=== PATIENT | female | born 1980 | race American Indian/Alaskan Native ===

== ENCOUNTER 2016-10-01 23:05 | Emergency (ER) | payer SELFPAY ==
[2016-10-02 00:51] LABS: Eosinophils % (Auto) 3.4 % (0.0-4.3); Hematocrit 38.6 % (30.3-42.9); Hemoglobin 12.6 gm/dl (10.1-14.3); Mean Corpuscular HGB Conc 33 % (30-34); Mean Corpuscular Hemoglobin 30 pg (28-32); Mean Corpuscular Volume 92 fl (79-97); Platelet Count 287 K/mm3 (140-440); Red Blood Count 4.18 M/mm3 (3.65-5.03); Red Cell Distribution Width 13.8 % (13.2-15.2); White Blood Count 5.1 K/mm3 (4.5-11.0)
[2016-10-02 01:01] LABS: Alanine Aminotransferase 25 units/L (7-56); Albumin 3.6 g/dL (3.9-5); Alkaline Phosphatase 73 units/L (35-129); Anion Gap 16 mmol/L; Bilirubin,Total 0.3 mg/dL (0.1-1.2); Blood Urea Nitrogen 11 mg/dL (7-17); Calcium 8.3 mg/dL (8.4-10.2); Carbon Dioxide 25 mmol/L (22-30); Chloride 104.7 mmol/L (98-107); Glucose 90 mg/dL (65-100); Lipase 33 units/L (13-60); Potassium 3.7 mmol/L (3.6-5.0); Sodium 142 mmol/L (137-145); Total Protein 7.1 g/dL (6.3-8.2)
[2016-10-02 02:15] LABS: Bilirubin,Urine NEG (Negative); Blood,Urine NEG (Negative); Ketones,Urine NEG (Negative); Leukocyte Esterase,Urine SM (Negative); Mucus,Urine FEW /HPF; Nitrite,Urine NEG (Negative); Protein,Urine <15 mg/dL mg/dL (Negative); Urobilinogen,Urine < 2.0 mg/dL (<2.0)
[2016-10-02] MEDS ORDERED: LIDOCAINE VISCOUS 2% ONE (06:56)
[2016-10-02] MEDS ORDERED: AFRIN ONE (06:57)
[2016-10-02 07:26] VITALS: BP 141/94
--- NOTE | 2016-10-02 07:45 | Emergency Department Report ---
ED Abdominal Pain HPI - General Chief Complaint: Abdominal Pain Stated Complaint: ABD PAIN Time Seen by Provider: 10/02/16 07:42 Source: patient Mode of arrival: Ambulatory Limitations: No Limitations - History of Present Illness Initial Comments: The patient complained of epigastric pain which did not migrate and was present intermittently and unrelated to eating times one day. Is largely resolved now. She does not complain of any lower abdominal pain or vaginal discharge. She denies dysuria. She denies fever or chills. She would like a work excuse. MD Complaint: abdominal pain -: hour(s) Location: epigastric Radiation: none Migration to: no migration Severity: mild, moderate Quality: aching Consistency: intermittent, now resolved Improves With: nothing Worsens With: nothing Associated Symptoms: denies other symptoms - Related Data Previous Rx's Medication Instructions Recorded Last Taken Type Lansoprazole [Prevacid] 15 mg PO BID #14 cap 10/02/16 Unknown Rx traMADol [Ultram] 50 mg PO Q6HR PRN #10 tablet 10/02/16 Unknown Rx Allergies Allergy/AdvReac Type Severity Reaction Status Date / Time No Known Allergies Allergy Verified 10/01/16 23:32 ED Review of Systems ROS: Stated complaint: ABD PAIN Other details as noted in HPI Constitutional: denies: chills, fever Eyes: denies: eye pain, eye discharge, vision change ENT: denies: ear pain, throat pain Respiratory: denies: cough, shortness of breath, wheezing Cardiovascular: denies: chest pain, palpitations Endocrine: no symptoms reported Gastrointestinal: as per HPI, abdominal pain. denies: nausea, diarrhea Genitourinary: denies: urgency, dysuria, discharge Musculoskeletal: denies: back pain, joint swelling, arthralgia Skin: denies: rash, lesions Neurological: denies: headache, weakness, paresthesias Psychiatric: denies: anxiety, depression Hematological/Lymphatic: denies: easy bleeding, easy bruising ED Past Medical Hx - Past Medical History Previous Medical History?: Yes Hx HIV: Yes - Surgical History Past Surgical History?: No - Social History Smoking Status: Current Every Day Smoker Substance Use Type: Alcohol, Cocaine - Medications Home Medications: Home Medications Medication Instructions Recorded Confirmed Last Taken Type Lansoprazole [Prevacid] 15 mg PO BID #14 cap 10/02/16 Unknown Rx traMADol [Ultram] 50 mg PO Q6HR PRN #10 tablet 10/02/16 Unknown Rx ED Physical Exam - General Limitations: No Limitations General appearance: alert, in no apparent distress - Head Head exam: Present: atraumatic, normocephalic - Eye Eye exam: Present: normal appearance, PERRL, EOMI. Absent: scleral icterus - ENT ENT exam: Present: mucous membranes moist - Neck Neck exam: Present: normal inspection - Respiratory Respiratory exam: Present: normal lung sounds bilaterally. Absent: respiratory distress - Cardiovascular Cardiovascular Exam: Present: regular rate, normal rhythm. Absent: systolic murmur, diastolic murmur, rubs, gallop - GI/Abdominal GI/Abdominal exam: Present: soft, normal bowel sounds. Absent: distended, tenderness, guarding, rebound, rigid, organomegaly, mass, bruit, pulsatile mass , hernia - Extremities Exam Extremities exam: Present: normal inspection - Back Exam Back exam: Present: normal inspection - Neurological Exam Neurological exam: Present: alert, oriented X3, CN II-XII intact. Absent: motor sensory deficit - Psychiatric Psychiatric exam: Present: normal affect, normal mood - Skin Skin exam: Present: warm, dry, intact, normal color. Absent: rash ED Course Vital Signs 10/01/16 10/02/16 10/02/16 23:33 06:00 06:50 Temperature 98.6 F 98.6 F 98.2 F Pulse Rate 78 73 70 Respiratory 18 12 20 Rate Blood Pressure 159/102 Blood Pressure 128/88 141/94 [Right] O2 Sat by Pulse 98 100 99 Oximetry - Reevaluation(s) Reevaluation #1: Will check an EKG prior to patient discharge. She is asymptomatic now. 10/02/16 08:03 ED Medical Decision Making - Lab Data Result diagrams: 10/02/16 00:26 10/02/16 00:26 Laboratory Results - last 24 hr 10/01/16 10/02/16 10/02/16 Unknown 00:26 00:26 WBC 5.1 RBC 4.18 Hgb 12.6 Hct 38.6 MCV 92 MCH 30 MCHC 33 RDW 13.8 Plt Count 287 Lymph % (Auto) 43.3 H [place] % (Auto) 10.4 H Eos % (Auto) 3.4 Baso % (Auto) 1.0 Lymph # 2.2 [place] # 0.5 Eos # 0.2 Baso # 0.0 Seg Neutrophils % 41.9 Seg Neutrophils # 2.2 Sodium 142 Potassium 3.7 Chloride 104.7 Carbon Dioxide 25 Anion Gap 16 BUN 11 Creatinine 0.5 L Estimated GFR > 60 BUN/Creatinine Ratio 22.00 Glucose 90 Calcium 8.3 L Total Bilirubin 0.3 AST 30 ALT 25 Alkaline Phosphatase 73 Total Protein 7.1 Albumin 3.6 L Albumin/Globulin Ratio 1.0 Lipase 33 HCG, Qual Urine Color Yellow Urine Turbidity Clear Urine pH 7.0 Ur Specific [place] 1.018 Urine Protein <15 mg/dl Urine Glucose (UA) Neg Urine Ketones Neg Urine Blood Neg Urine Nitrite Neg Urine Bilirubin Neg Urine Urobilinogen < 2.0 Ur Leukocyte Esterase Sm Urine WBC (Auto) 4.0 Urine RBC (Auto) 3.0 U Epithel Cells (Auto) 4.0 Urine Mucus Few 10/02/16 00:26 WBC RBC Hgb Hct MCV MCH MCHC RDW Plt Count Lymph % (Auto) [place] % (Auto) Eos % (Auto) Baso % (Auto) Lymph # [place] # Eos # Baso # Seg Neutrophils % Seg Neutrophils # Sodium Potassium Chloride Carbon Dioxide Anion Gap BUN Creatinine Estimated GFR BUN/Creatinine Ratio Glucose Calcium Total Bilirubin AST ALT Alkaline Phosphatase Total Protein Albumin Albumin/Globulin Ratio Lipase HCG, Qual Negative Urine Color Urine Turbidity Urine pH Ur Specific [place] Urine Protein Urine Glucose (UA) Urine Ketones Urine Blood Urine Nitrite Urine Bilirubin Urine Urobilinogen Ur Leukocyte Esterase Urine WBC (Auto) Urine RBC (Auto) U Epithel Cells (Auto) Urine Mucus - EKG Data -: EKG Interpreted by Me EKG shows normal: sinus rhythm, axis, intervals, QRS complexes, ST-T waves Rate: normal - EKG Data Interpretation: normal EKG Critical care attestation.: If time is entered above; I have spent that time in minutes in the direct care of this critically ill patient, excluding procedure time. ED Disposition Clinical Impression: Epigastric pain Disposition: DISCHARGED TO HOME OR SELFCARE Is pt being admited?: No Does the pt Need Aspirin: No Condition: Stable Instructions: Abdominal Pain (ED) Additional Instructions: Follow-up with your primary care provider. Obviously avoid any stomach irritants, alcohol or substance abuse. Return any acute change or problem. Prescriptions: Lansoprazole [Prevacid] 15 mg PO BID #14 cap traMADol [Ultram] 50 mg PO Q6HR PRN #10 tablet PRN Reason: Pain Referrals: PRIMARY CARE, [Primary Care Provider] - 3-5 Days Forms: Work/School Release Form(ED) Time of Disposition: 08:05
== END 2016-10-02 08:25 | disposition home or self-care (01) ==
LOC: ED 23:05
DX: R10.13 Epigastric pain (principal); F17.200 Nicotine dependence, unspecified, uncomplicated; F14.10 Cocaine abuse, uncomplicated
CPT/HCPCS: 36415; 80053; 81001; 83690; 84703; 85025; 93005; 93010; 99283

== ENCOUNTER 2018-11-12 05:12 | Observation (INO) | payer OTHER ==
[2018-11-12] MEDS ORDERED: NACL 0.9% 1000 ML 1,000 ML IV ONE ×2 (05:45→07:00)
[2018-11-12] MEDS ORDERED: DECADRON IV ONE (05:46)
[2018-11-12] MEDS ORDERED: TORADOL IV ONE (05:46)
[2018-11-12 06:09] LABS: Bilirubin,Urine NEG (Negative); Blood,Urine NEG (Negative); Color,Urine Yellow (Yellow); Hyaline Casts,Urine 1 /LPF; Mucus,Urine FEW /HPF; Urobilinogen,Urine < 2.0 mg/dL (<2.0)
[2018-11-12 06:17] LABS: HCG Qualitative,Urine Negative (Negative)
[2018-11-12 06:22] LABS: Hematocrit 26.3 % (30.3-42.9); Hemoglobin 9.2 gm/dl (10.1-14.3); Mean Corpuscular HGB Conc 35 % (30-34); Mean Corpuscular Volume 88 fl (79-97); Red Blood Count 2.99 M/mm3 (3.65-5.03); Red Cell Distribution Width 15.1 % (13.2-15.2)
[2018-11-12 06:24] LABS: Platelet Count 47 K/mm3 (140-440)
[2018-11-12] MEDS ORDERED: ROCEPHIN/NS 1 GM/50 ML 1 GM/50 ML BAG IV ONE (06:33)
[2018-11-12 06:35] LABS: Albumin 3.5 g/dL (3.9-5)
[2018-11-12 06:50] LABS: Calcium 12.7 mg/dL (8.4-10.2)
--- NOTE | 2018-11-12 06:53 | XRay Report ---
PROCEDURE: XR CHEST ROUTINE 2V TECHNIQUE: PA and lateral chest radiographs were obtained. HISTORY: cough COMPARISONS: None. FINDINGS: Heart: Normal. Mediastinum/Vessels: Normal. Lungs/Pleural space: There are no acute infiltrates or effusions.. Bony thorax: No acute osseous abnormality. IMPRESSION: No acute cardiopulmonary process.. This document is electronically signed by Asher Adams MD., November 12 2018 06:51:36 AM ET
--- NOTE | 2018-11-12 07:35 | Emergency Department Report ---
<KEVIN CONNORS - Last Filed: 11/12/18 07:31> ED General Adult HPI - General Chief complaint: Pain General Stated complaint: MUSCLE ACHES X'S 2 WEEKS Time Seen by Provider: 11/12/18 05:30 Source: patient Mode of arrival: Ambulatory Limitations: No Limitations - History of Present Illness Initial comments: The patient is a 37-year-old -[place] female with a history of HIV and on ARV medications, who presents to the ED with complaint of acute onset persistent severe diffuse nontraumatic bodyaches and pains for the last 2 weeks. Patient states that she was evaluated by her primary care physician 2 days ago and was told that nothing was wrong with her, and was advised to take [id number] pain medications. Patient states that she has been taking [id number] medications with no relief. Patient also states that she has not been able to sleep because of severe diffuse body aches and pains. Patient denies dizziness, fever, chills, nausea, vomiting, abdominal pain, diarrhea, chest pain, headache, dysuria, urinary frequency and urgency for cough and shortness of breath. MD Complaint: diffuse body aches and pains -: Sudden, week(s) (2) Location: back, upper extremity, lower extremity Radiation: non-radiation Severity scale (0 -10): 8 Quality: aching, sharp, constant Consistency: constant Improves with: none Worsens with: none Associated Symptoms: denies other symptoms. denies: confusion, chest pain, cough, diaphoresis, fever/chills, headaches, loss of appetite, malaise, nausea/vomiting, rash, shortness of breath, syncope, weakness Treatments Prior to Arrival: none - Related Data Previous Rx's Medication Instructions Recorded Last Taken Type Lansoprazole [Prevacid] 15 mg PO BID #14 cap 10/02/16 Unknown Rx traMADol [Ultram] 50 mg PO Q6HR PRN #10 tablet 10/02/16 Unknown Rx Allergies Allergy/AdvReac Type Severity Reaction Status Date / Time No Known Allergies Allergy Verified 10/01/16 23:32 ED Review of Systems Comment: All other systems reviewed and negative Constitutional: denies: chills, fever, malaise, weakness Eyes: denies: eye pain, eye discharge, vision change ENT: denies: ear pain, throat pain, dental pain, hearing loss, congestion Respiratory: see HPI. denies: cough, shortness of breath, SOB with exertion, SOB at rest, wheezing Cardiovascular: denies: chest pain, palpitations, dyspnea on exertion, syncope, paroxysmal nocturnal dyspnea Endocrine: no symptoms reported. denies: excessive sweating, increased hunger, increased urine, unexplained weight gain Gastrointestinal: denies: abdominal pain, nausea, diarrhea Genitourinary: denies: urgency, dysuria, discharge Musculoskeletal: back pain, arthralgia, myalgia. denies: joint swelling Skin: denies: rash, lesions Neurological: denies: headache, weakness, paresthesias Psychiatric: denies: anxiety, depression Hematological/Lymphatic: denies: easy bleeding, easy bruising ED Past Medical Hx - Past Medical History Previous Medical History?: Yes Hx HIV: Yes - Surgical History Past Surgical History?: No - Social History Smoking Status: Current Every Day Smoker Substance Use Type: None - Medications Home Medications: Home Medications Medication Instructions Recorded Confirmed Last Taken Type Lansoprazole [Prevacid] 15 mg PO BID #14 cap 10/02/16 Unknown Rx traMADol [Ultram] 50 mg PO Q6HR PRN #10 tablet 10/02/16 Unknown Rx ED Physical Exam - General Limitations: No Limitations General appearance: alert, in no apparent distress - Head Head exam: Present: atraumatic, normocephalic, normal inspection - Eye Eye exam: Present: normal appearance, PERRL, EOMI Pupils: Present: normal accommodation - ENT ENT exam: Present: normal exam, normal orophraynx, mucous membranes moist, TM's normal bilaterally, normal external ear exam - Neck Neck exam: Present: normal inspection, full ROM - Respiratory Respiratory exam: Present: normal lung sounds bilaterally. Absent: respiratory distress, wheezes, rales, rhonchi, chest wall tenderness, accessory muscle use, prolonged expiratory - Cardiovascular Cardiovascular Exam: Present: regular rate, normal rhythm. Absent: systolic murmur, diastolic murmur, rubs, gallop - GI/Abdominal GI/Abdominal exam: Present: soft, normal bowel sounds. Absent: tenderness, hyperactive bowel sounds, hypoactive bowel sounds - Rectal Rectal exam: Present: deferred - Extremities Exam Extremities exam: Present: normal inspection, full ROM, normal capillary refill - Back Exam Back exam: Present: normal inspection, full ROM. Absent: CVA tenderness (L), muscle spasm, paraspinal tenderness, vertebral tenderness - Neurological Exam Neurological exam: Present: alert, oriented X3, CN II-XII intact, normal gait, reflexes normal - Psychiatric Psychiatric exam: Present: normal affect, normal mood - Skin Skin exam: Present: warm, dry, intact, normal color. Absent: rash ED Course - Reevaluation(s) Reevaluation #1: 11/12/18 07:35 Patient is alert and oriented 3 and is not in any distress but in pain and normal vital signs. Labs are drawn and patient treated for pain. Chest x-ray shows no acute cardiopulmonary abnormalities. Lab tests results were reviewed and show acute hypercalcemia of 12.7, BUN and creatinine levels are 31 and 1.7 respectively and acute leukocytosis of 11,100. Urinalysis shows acute urinary tract infection. Patient was treated in the ED with normal saline 2 L IV bolus, pain medications and Rocephin 1 g IV 1. EKG, troponin levels and PTH level was also added to the tests. On reevaluation, patient's pain is well controlled, patient resting comfortably on the bed does not and watching TV. ED Medical Decision Making - Lab Data Result diagrams: 11/12/18 06:10 11/12/18 06:10 - Radiology Data Radiology results: report reviewed, image reviewed No acute cardiopulmonary abnormality - Medical Decision Making Patient is alert and oriented 3 and is not in any distress but in pain and normal vital signs. Labs are drawn and patient treated for pain. Chest x-ray shows no acute cardiopulmonary abnormalities. Lab tests results were reviewed and show acute hypercalcemia of 12.7, BUN and creatinine levels are 31 and 1.7 respectively and acute leukocytosis of 11,100. Urinalysis shows acute urinary tract infection. Patient was treated in the ED with normal saline 2 L IV bolus, pain medications and Rocephin 1 g IV 1. EKG, troponin levels and PTH level was also added to the tests. On reevaluation, patient's pain is well controlled, patient resting comfortably on the bed does not and watching TV. Patient care was transferred to Ms. Jarqiun Sammy ARELLANO at shift change. Ms Jarquin shall review her lab test results and make appropriate disposition. - Differential Diagnosis Flu like symptoms, Body aches, acute hypercalcemia, acute uti ED Disposition Clinical Impression: Hypercalcemia, Deficiency of PTH Disposition: OP ADMIT IP TO THIS HOSP Condition: Stable Referrals: GERTRUDE MALDONADO MD [Primary Care Provider] - 3-5 Days <HOLLISPENCERAditya Servin - Last Filed: 11/12/18 08:46> ED Review of Systems ROS: Stated complaint: MUSCLE ACHES X'S 2 WEEKS Other details as noted in HPI ED Course Vital Signs 11/12/18 05:18 Temperature 98.1 F Pulse Rate 96 H Respiratory 18 Rate Blood Pressure 118/62 O2 Sat by Pulse 97 Oximetry ED Medical Decision Making - Lab Data Result diagrams: 11/12/18 06:10 11/12/18 06:10 - Medical Decision Making Spoke to Dr. Cotton hospitalists regarding patient's status. He recommends patient to be admitted to [facility] with telemetry. Patient's PTH came back low at 14.16 but elevated hyper cussing of 12.7, elevated BUN of 31 mild bump in creatinine 1.6. Patient be evaluated as an admission. Critical care attestation.: If time is entered above; I have spent that time in minutes in the direct care of this critically ill patient, excluding procedure time. ED Disposition Is pt being admited?: Yes Does the pt Need Aspirin: No
[2018-11-12 08:28] LABS: Anisocytosis 1+; Band Neutrophils # (Manual) 0.9 K/mm3; Platelet Estimate Consistent w Auto; Total Cells Counted 100
[2018-11-12] MEDS ORDERED: NACL 0.9% 1000 ML 1,000 ML ONE (09:32)
[2018-11-12] MEDS ORDERED: ZOFRAN IV PRN (11:56)
[2018-11-12] MEDS ORDERED: SODIUM CHLORIDE FLUSH SYRINGE 10 ML IV PRN (11:56)
[2018-11-12] MEDS ORDERED: TYLENOL PO PRN (11:56)
--- NOTE | 2018-11-12 12:08 | History and Physical Report ---
History of Present Illness Date of examination: 11/12/18 Date of admission: 11/12/18 08:38 Chief complaint: Generalized body pain History of present illness: 37-year-old -[place] female with past medical history significant for HIV medication presented to the emergency department complaining of generalized body aches worse in the abdomen and in the legs or the last 1 week. Aching pain, at our of 10 intensity was no alleviating or aggravating factors iden tified. Patient went to her primary care physician 2 days ago and was given Tylenol with no improvement. Patient admitted that she has frequency and urgency but denied dysuria. Patient denied fever, chills, nausea, vomiting. Vision complains occasional dry cough and headache. REVIEW OF SYSTEMS: GENERAL: no weight change, no fatigue, no fever HEAD: + head ache EYES: no blurry vision, no acute visual loss EARS: no hearing loss, no discharge, no earache NOSE: no stuffiness, no sneezing, no discharge MOUTH, THROAT AND NECK: no bleeding gums, no sore throat, no swollen neck CARDIAC: no palpitations, no dyspnea on exertion, no orthopnea, no PND, no edema, no chest pain RESPIRATORY: no shortness of breath, no wheeze, no cough, no sputum, no hemoptysis, no asthma GI: no decreased appetite, no nausea, no vomiting, no dysphagia, no diarrhea, no constipation,+ abdominal pain URINARY: increased in frequency, + urgency MUSCULOSKELETAL: generalized aches NEUROLOGIC: no loss of sensation/numbness, no tingling, no tremors, no weakness/paralysis HEMATOLOGIC: no anemia, no easy bruising SKIN: no rashes ENDOCRINE: no heat/cold intolerance, no polyuria, no polydipsia, no thyroid p roblems, no diabetes PSYCHIATRIC: no anxiety, no depression, no suicidal ideations Past History Past Medical History: HIV/AIDS Past Surgical History: Other (wart removal around the vaginal area) Social history: smoking (2x aweek), alcohol abuse (drinks heavily on her off days 2x a week) Family history: no significant family history Medications and Allergies Allergies Allergy/AdvReac Type Severity Reaction Status Date / Time No Known Allergies Allergy Verified 10/01/16 23:32 Home Medications Medication Instructions Recorded Confirmed Last Taken Type traMADol [Ultram] 50 mg PO Q6HR PRN #10 tablet 0411/12/18 11/12/18 07:00 Rx Contrave ER 8-90 mg Tablet 8 - 90 mg PO BID 11/12/18 11/12/18 11/11/18 History TRUVADA 200-300 mg 200 mg PO DAILY 11/12/18 11/12/18 11/11/18 History Active Meds: Active Medications Acetaminophen (Tylenol) 650 mg PO Q4H PRN PRN Reason: Pain MILD(1-3)/Fever >100.5/ONEAL Famotidine (Pepcid) 20 mg PO BID JERRY Sodium Chloride (Nacl 0.9% 1000 Ml) 1,000 mls @ 125 mls/hr IV DIRECT JERRY Ceftriaxone Sodium (Rocephin/Ns 1 Gm/50 Ml) 1 gm in 50 mls @ 100 mls/hr IV Q24HR JERRY; Protocol Ondansetron HCl (Zofran) 4 mg IV Q8H PRN PRN Reason: Nausea And Vomiting Oxycodone/Acetaminophen (Percocet 5/325) 1 tab PO Q6H PRN PRN Reason: Pain, Moderate (4-6) Sodium Chloride (Sodium Chloride Flush Syringe 10 Ml) 10 ml IV BID JERRY Sodium Chloride (Sodium Chloride Flush Syringe 10 Ml) 10 ml IV PRN PRN PRN Reason: LINE FLUSH Exam - Physical Exam Narrative exam: Not in cardiopulmonary distress. The patient appeared well nourished and normally developed. Vital signs as documented. Head exam is unremarkable. No scleral icterus . Neck is without jugular venous distension, thyromegaly, or carotid bruits. Lungs are clear to auscultation. Cardiac exam reveals regular rate and Rhythm. First and second heart sounds normal. No murmurs, rubs or gallops. Abdominal exam reveals normal bowel sounds, no masses, no organomegaly and no aortic enlargement. Extremities are nonedematous and both femoral and pedal pulses are normal. EM PHYSICIAN: Alert and oriented 3. No focal weakness. - Constitutional Vitals: Temp Pulse Resp BP Pulse Ox 98.7 F 89 20 131/85 96 11/12/18 09:45 11/12/18 09:45 11/12/18 09:45 11/12/18 09:45 11/12/18 09:45 Results - Labs CBC & Chem 7: 11/12/18 06:10 11/12/18 06:10 Labs: Laboratory Last Values WBC 11.1 K/mm3 (4.5-11.0) H 11/12/18 06:10 RBC 2.99 M/mm3 (3.65-5.03) L 11/12/18 06:10 Hgb 9.2 gm/dl (10.1-14.3) L 11/12/18 06:10 Hct 26.3 % (30.3-42.9) L 11/12/18 06:10 MCV 88 fl (79-97) 11/12/18 06:10 MCH 31 pg (28-32) 11/12/18 06:10 MCHC 35 % (30-34) H 11/12/18 06:10 RDW 15.1 % (13.2-15.2) 11/12/18 06:10 Plt Count 47 K/mm3 (140-440) L 11/12/18 06:10 [place] % (Auto) Tape Editor 11/12/18 06:10 Add Manual Diff Complete 11/12/18 06:10 Total Counted 100 11/12/18 06:10 Seg Neuts % (Manual) 40.0 % (40.0-70.0) 11/12/18 06:10 8.0 % 11/12/18 06:10 31.0 % (13.4-35.0) 11/12/18 06:10 Reactive Lymphs % (Man) 4.0 % 11/12/18 06:10 9.0 % (0.0-7.3) H 11/12/18 06:10 1.0 % (0.0-4.3) 11/12/18 06:10 1.0 % (0.0-1.8) 11/12/18 06:10 6.0 % 11/12/18 06:10 0 % 11/12/18 06:10 0 % 11/12/18 06:10 0 % 11/12/18 06:10 Nucleated RBC % 4.0 % (0.0-0.9) H 11/12/18 06:10 Seg Neutrophils # Man 4.4 K/mm3 (1.8-7.7) 11/12/18 06:10 Band Neutrophils # 0.9 K/mm3 11/12/18 06:10 3.4 K/mm3 (1.2-5.4) 11/12/18 06:10 Abs React Lymphs (Man) 0.4 K/mm3 11/12/18 06:10 1.0 K/mm3 (0.0-0.8) H 11/12/18 06:10 0.1 K/mm3 (0.0-0.4) 11/12/18 06:10 0.1 K/mm3 (0.0-0.1) 11/12/18 06:10 0.7 K/mm3 11/12/18 06:10 0.0 K/mm3 11/12/18 06:10 0.0 K/mm3 11/12/18 06:10 Blast Cells # 0.0 K/mm3 11/12/18 06:10 WBC Morphology Not Reportable 11/12/18 06:10 Hypersegmented Neuts Not Reportable 11/12/18 06:10 Hyposegmented Neuts Not Reportable 11/12/18 06:10 Hypogranular Neuts Not Reportable 11/12/18 06:10 Not Reportable 11/12/18 06:10 Not Reportable 11/12/18 06:10 Not Reportable 11/12/18 06:10 Not Reportable 11/12/18 06:10 Not Reportable 11/12/18 06:10 Not Reportable 11/12/18 06:10 Consistent w auto 11/12/18 06:10 Not Reportable 11/12/18 06:10 Plt Clumps, EDTA Not Reportable 11/12/18 06:10 Not Reportable 11/12/18 06:10 Not Reportable 11/12/18 06:10 Not Reportable 11/12/18 06:10 Plt Morphology Comment Not Reportable 11/12/18 06:10 RBC Morphology Not Reportable 11/12/18 06:10 Dimorphic RBCs Not Reportable 11/12/18 06:10 Not Reportable 11/12/18 06:10 Not Reportable 11/12/18 06:10 Not Reportable 11/12/18 06:10 1+ 11/12/18 06:10 Few 11/12/18 06:10 Not Reportable 11/12/18 06:10 Not Reportable 11/12/18 06:10 Not Reportable 11/12/18 06:10 Not Reportable 11/12/18 06:10 Not Reportable 11/12/18 06:10 Not Reportable 11/12/18 06:10 Not Reportable 11/12/18 06:10 Not Reportable 11/12/18 06:10 Not Reportable 11/12/18 06:10 Not Reportable 11/12/18 06:10 Not Reportable 11/12/18 06:10 Not Reportable 11/12/18 06:10 Not Reportable 11/12/18 06:10 Not Reportable 11/12/18 06:10 Acanthocytes (Spur) Not Reportable 11/12/18 06:10 Rouleaux Not Reportable 11/12/18 06:10 Not Reportable 11/12/18 06:10 Not Reportable 11/12/18 06:10 Not Reportable 11/12/18 06:10 Not Reportable 11/12/18 06:10 Hem Pathologist Commnt No 11/12/18 06:10 Sodium 140 mmol/L (137-145) 11/12/18 06:10 Potassium 4.1 mmol/L (3.6-5.0) 11/12/18 06:10 Chloride 108.4 mmol/L (98-107) H 11/12/18 06:10 Carbon Dioxide 16 mmol/L (22-30) L 11/12/18 06:10 20 mmol/L 11/12/18 06:10 BUN 31 mg/dL (7-17) H 11/12/18 06:10 1.7 mg/dL (0.7-1.2) H 11/12/18 06:10 Estimated GFR 41 ml/min 11/12/18 06:10 18 % 11/12/18 06:10 Glucose 82 mg/dL (65-100) 11/12/18 06:10 Calcium 12.7 mg/dL (8.4-10.2) H* 11/12/18 06:10 Phosphorus 4.90 mg/dL (2.5-4.5) H 11/12/18 06:10 0.40 mg/dL (0.1-1.2) 11/12/18 06:10 AST 102 units/L (5-40) H 11/12/18 06:10 ALT 32 units/L (7-56) 11/12/18 06:10 82 units/L (35-129) 11/12/18 06:10 6.5 g/dL (6.3-8.2) 11/12/18 06:10 3.5 g/dL (3.9-5) L 11/12/18 06:10 1.2 % 11/12/18 06:10 PTH Intact 14.16 pg/mL (15-65) L 11/12/18 Unknown Yellow (Yellow) 11/12/18 05:49 Cloudy (Clear) 11/12/18 05:49 5.0 (5.0-7.0) 11/12/18 05:49 Ur Specific [place] 1.018 (1.003-1.030) 11/12/18 05:49 30 mg/dl mg/dL (Negative) 11/12/18 05:49 Neg mg/dL (Negative) 11/12/18 05:49 Neg mg/dL (Negative) 11/12/18 05:49 Neg (Negative) 11/12/18 05:49 Neg (Negative) 11/12/18 05:49 Neg (Negative) 11/12/18 05:49 < 2.0 mg/dL (<2.0) 11/12/18 05:49 Ur Leukocyte Esterase Tr (Negative) 11/12/18 05:49 23.0 /HPF (0.0-6.0) H 11/12/18 05:49 1.0 /HPF (0.0-6.0) 11/12/18 05:49 U Epithel Cells (Auto) 8.0 /HPF (0-13.0) 11/12/18 05:49 Hyaline Casts 1 /LPF 11/12/18 05:49 Few /HPF 11/12/18 05:49 Urine HCG, Qual Negative (Negative) 11/12/18 05:49 Assessment and Plan Assessment and plan: Generalized body pain - Causes unknown - Symptomatic management UTI - Urine cultures pending - is on IV ceftriaxone Hypercalcemia - Was minimally decreased parathyroid hormone - Hydrated with IV fluids - Monitor in the morning - If persisted, need workup with saddle cutter as an outpatient DEIDRA - Likely due to dehydration - Continue IV fluids HIV/AIDS - Continue her home medications Alcoholism, binge drinker - Counseled about cessation of alcohol DVT prophylaxis - On heparin Disposition - Admit to medical floor for observation Advance Directives: Yes VTE prophylaxis?: Chemical Plan of care discussed with patient/family: Yes
[2018-11-12] MEDS: SODIUM CHLORIDE FLUSH SYRINGE 10 ML IV SCH ×2 (13:51→20:10)
[2018-11-12] MEDS: NACL 0.9% 1000 ML 1,000 ML IV SCH ×2 (13:51→20:10)
[2018-11-12] MEDS ORDERED: TRUVADA PO SCH (14:30)
[2018-11-12] MEDS: NON-FORMULARY PO SCH (17:22)
[2018-11-12] MEDS: PERCOCET 5/325 PO PRN (19:05)
[2018-11-12] MEDS: HEPARIN SUB-Q SCH (21:37)
[2018-11-12] MEDS: PEPCID PO SCH (21:37)
[2018-11-13] MEDS: NACL 0.9% 1000 ML 1,000 ML IV SCH (03:38)
[2018-11-13] MEDS: PERCOCET 5/325 PO PRN (04:39)
[2018-11-13 06:22] VITALS: BP 148/95
[2018-11-13] MEDS: HEPARIN SUB-Q SCH (06:30)
[2018-11-13 08:08] LABS: Hematocrit 26.4 % (30.3-42.9); Mean Corpuscular HGB Conc 34 % (30-34); Mean Corpuscular Volume 89 fl (79-97); Red Blood Count 2.96 M/mm3 (3.65-5.03); Red Cell Distribution Width 15.7 % (13.2-15.2)
[2018-11-13 08:45] LABS: Albumin 3.2 g/dL (3.9-5); Calcium 10.8 mg/dL (8.4-10.2)
[2018-11-13] MEDS ORDERED: ROCEPHIN/NS 1 GM/50 ML 1 GM/50 ML BAG IV SCH (10:00)
--- NOTE | 2018-11-13 10:14 | Discharge Summary ---
Providers - Providers Date of Admission: 11/12/18 08:38 Attending physician: MALOU SMITH MD Primary care physician: GERTRUDE MALDONADO Hospitalization Reason for admission: UTI, generalized body aches, hypercalcemia Condition: Stable Pertinent studies: Chest x-ray was normal Hospital course: 37-year-old -[place] female with past medical history significant for HIV medication presented to the emergency department complaining of generalized body aches worse in the abdomen and in the legs or the last 1 week. Aching pain, at our of 10 intensity was no alleviating or aggravating factors identified. Patient went to her primary care physician 2 days ago and was given Tylenol with no improvement. Patient admitted that she has frequency and urgency but denied dysuria. Patient denied fever, chills, nausea, vomiting. Vision complains occasional dry cough and headache. Patient was admitted to an pain subsides with pain medication. Patient had a UTI and started his IV ceftriaxone and continued with by mouth Keflex at discharge. Patient had hypercalcemia and was treated with IV fluids and calcium level was close to normal this morning. There is a slight decrease in PTH. Advised the patient to follow-up with her primary care physician for calcium level and if still high she needed follow-up with soap drier operator. I have discussed in detail with the patient and patient verbalizes she understood the management plan. Patient was hemodynamically stable at the time of discharge. Disposition: [id number] TO HOME OR SELFCARE Time spent for discharge: 32 minutes - Discharge Diagnoses (1) Acute pain in joint Status: Acute (2) Acute urinary tract infection Status: Acute (3) Deficiency of PTH Status: Acute (4) Hypercalcemia Status: Acute Core Measure Documentation - Palliative Care Palliative Care/ Comfort Measures: Not Applicable - Core Measures Any of the following diagnoses?: none Exam - Physical Exam Narrative exam: Not in cardiopulmonary distress. The patient appeared well nourished and normally developed. Vital signs as documented. Head exam is unremarkable. No scleral icterus . Neck is without jugular venous distension, thyromegaly, or carotid bruits. Lungs are clear to auscultation. Cardiac exam reveals regular rate and Rhythm. First and second heart sounds normal. No murmurs, rubs or gallops. Abdominal exam reveals normal bowel sounds, no masses, no organomegaly and no aortic enlargement. Extremities are nonedematous and both femoral and pedal pulses are normal. SOCIOLOGY TEACHER: Alert and oriented 3. No focal weakness. - Constitutional Vitals: Temp Pulse Resp BP Pulse Ox 98.0 F 88 20 148/95 95 11/13/18 05:52 11/12/18 23:36 11/13/18 05:52 11/13/18 05:52 11/13/18 07:56 Plan Activity: no restrictions Weight Bearing Status: Full Weight Bearing Diet: regular Additional Instructions: Patient need O/P soap drier operator follow up. Follow up with: GERTRUDE MALDONADO MD [Primary Care Provider] - 3-5 Days Prescriptions: cephALEXin [Keflex] 500 mg PO Q8HR #15 cap traMADol [Ultram 50 MG tab] 50 mg PO Q6HR PRN #10 tablet PRN Reason: Pain
[2018-11-13 11:02] LABS: Band Neutrophils # (Manual) 0.8 K/mm3; Basophils % (Manual) 0 % (0.0-1.8); Myelocytes # (Manual) 1.4 K/mm3; Promyelocytes # (Manual) 0.3 K/mm3; Total Cells Counted 100
[2018-11-13 11:07] LABS: Anisocytosis 1+; Platelet Estimate Consistent w Auto
[2018-11-13] MEDS: NON-FORMULARY PO SCH (11:20)
[2018-11-13] MEDS: PEPCID PO SCH (11:20)
[2018-11-13 11:23] LABS: Platelet Count 45 K/mm3 (140-440)
== END 2018-11-13 11:50 | disposition home or self-care (01) ==
LOC: ED 05:12 → 3A 08:38 → INTOOBSV 08:38
PROVIDERS: ADMIT Internal Medicine; ATTEND Internal Medicine
DX: N39.0 Urinary tract infection, site not specified (principal); E83.52 Hypercalcemia; R52 Pain, unspecified; N17.9 Acute kidney failure, unspecified; F10.20 Alcohol dependence, uncomplicated; B20 Human immunodeficiency virus [HIV] disease; F17.200 Nicotine dependence, unspecified, uncomplicated; Z79.899 Other long term (current) drug therapy
CPT/HCPCS: 36415; 71046; 80053; 81001; 81025; 83970; 84100; 85007; 85025; 87086; 96361; 96365; 96372; 96375; 99284; G0378; J0696; J1100; J1644; J1885; J7030